=== PATIENT | male | born 1980 | race Caucasian/White ===

== ENCOUNTER 2017-05-02 11:18 | Emergency (ER) | payer MEDICAID ==
[~2017-05-02] VITALS: Ht 177.8 cm; Wt 150.0 kg
[2017-05-02] MEDS ORDERED: LISI-662 PO (12:14)
[2017-05-02] MEDS ORDERED: DILT90 PO (12:14)
[2017-05-02] MEDS ORDERED: HYDR25TA PO (12:14)
[2017-05-02 12:15] VITALS: BP 159/96
== END 2017-05-02 13:03 | disposition home or self-care (01) ==
LOC: EMS 11:22
DX: Z76.0 Encounter for issue of repeat prescription (principal); I11.9 Hypertensive heart disease without heart failure
CPT/HCPCS: 99283